=== PATIENT | male | born 1955 | race Caucasian/White ===

== ENCOUNTER 2016-09-10 03:23 | Emergency (ER) | payer OTHER ==
--- NOTE | 2016-09-10 10:14 | ED ORDER SUMMARY ---
..... Patient: NIKI NUÑEZ V OrderSheet [facility] VisitID: [id number] [place] [address] 61y, M Registration Date/Time: 09/10/2016 ORDER SHEET Weight: 83.9 kg Allergies: No Known Drug Allergy GENERAL ORDERS: CBC w Diff Urgent (03:52 09/10/2016 TBowen R.N. per protocol) (3:52 TBowen R.N.) CMP Urgent (03:52 09/10/2016 TBowen R.N. per protocol) (3:52 TBowen R.N.) UA-Culture if indicated Urgent (03:52 09/10/2016 TBowen R.N. per protocol) (3:52 TBowen R.N.) CT Abd/Pel wo Cont (left) Urgent (04:02 09/10/2016 Surya ENRIQUEZ) (Ack 4:04 CHategekimana) (12:08 JSanders R.N.) (Cancelled: Other12:08 JSanders R.N.) US Abdomen Complete (Yes) (left kidney stone ) Urgent (07:22 09/10/2016 Surya ENRIQUEZ) (Ack 7:27 TBergley) (10:19 TBergley) MEDICATION ORDERS: Flomax PO 0.4 mg (NOW) (07:23 09/10/2016 Surya ENRIQUEZ) (7:39 JSanders R.N.) IV FLUIDS: IV NS : initial bolus 500 mL (1000 mL/hr), then 250 mL/hr for 4h (NOW); Routine (04:02 09/10/2016 Surya ENRIQUEZ) (4:17 TBowelodia R.N.) Toradol IV 30 mg (NOW) (04:02 09/10/2016 Surya ENRIQUEZ) (4:15 TBkarin R.N.) Zofran IV 4 mg (NOW) (04:03 09/10/2016 Surya ENRIQUEZ) (4:15 Joe R.N.) Dilaudid IV 1 mg (NOW) (04:03 09/10/2016 Surya ENRIQUEZ) (4:16 TBowelodia R.N.) Dilaudid IV 1 mg (NOW) (06:23 09/10/2016 Joe Glover verbal order read back to Surya ENRIQUEZ) (7:03 Joe Glover) Rocephin IV 2 gm/50mL (NOW) (08:36 09/10/2016 Surya ENRIQUEZ) (8:56 Francisca Luna.N.) Dilaudid IV 0.5 mg (NOW) (10:13 09/10/2016 Renetta ENRIQUEZ) (10:35 Francisca R.NKaleb) ORDER SHEET NOTES: [Electronically signed by Chantel Pineda R.N. (12:09 09/10/2016)] [Electronically signed by Cory Higgins MD (00:41 09/13/2016)] [Electronically locked/signed by Chantel Pineda R.N. (12:09 09/10/2016)]
--- NOTE | 2016-09-10 10:14 | ED NURSING NOTES ---
Clinical Report - Nurses [facility] [address] [place] [address] 09/10/2016 3:26 Patient: NIKI NUÑEZ V TRIAGE Triage time 03:40. Acuity: LEVEL 3. Chief Complaint: PAIN WITH URINATION. Alert. --03:44 TonyaB, R.N. 03:40 09/10/16. BP: 157/129. HR: 95. RR: 18. O2 saturation: 100%. Temp: 98.4 F. Pain level now 02/16. --03:44 TonyaB, R.N. Acuity: LEVEL 3. --07:04 TonyaB, R.N. Weight: 83.9 kg. Height/Length: 75 inches. BMI: 23.1. --03:44 TonyaB, R.N. Medications None. --03:41 TonyaB, R.N. Allergies No Known Drug Allergy. --03:41 TonyaB, R.N. History Arrived by private vehicle. Historian: patient. Accompanied by family. ( pt states sharp left flank pain that started at 2230 tonight pt states he has history of kidney stones). This started last night. He has had discomfort with urination and mild urgency of urination. Treatment [employer]: None. PAST MEDICAL HX: Immunizations: up-to-date. SOCIAL HX: Never smoker. Alcohol use. History of drug use: marijuana. No infectious disease exposure. ABUSE ASSESSMENT: No report of abuse. SELF HARM ASSESSMENT: A self harm assessment was performed. The patient answered "no" to the question "Have you recently felt down, depressed, or hopeless?", "Have you noticed less interest or pleasure in doing things?", "Do you have thoughts of harming or killing yourself?", "Are you here because you tried to hurt yourself?", "Have you ever tried to hurt yourself before today?", "Have you recently had thoughts about harming or killing others?" and "Do you have any dangerous items in your possession?". FALL RISK ASSESSMENT: Fall risk assessment completed. No fall risk identified. NUTRITIONAL RISK ASSESSMENT: The nutritional risk assessment revealed no deficiencies. FUNCTIONAL ASSESSMENT: Functional assessment: no impairments noted. LEARNING NEEDS ASSESSMENT: The learning needs assessment revealed no barriers. SKIN INTEGRITY ASSESSMENT: Skin integrity risk assessment completed. No skin integrity risk identified. --03:44 Adalberto Do PROBLEMS: Nephrolithiasis. --03:42 Adalberto Do Interventions ID band on patient. To treatment room. --03:44 Adalberto Do PHYSICAL ASSESSMENT Ambulatory to room. GENERAL / NEURO / PSYCH: Alert. Oriented X 4. Appears in pain. HEENT: Mucous membranes are pink. RESPIRATORY: Respirations not labored. Breath sounds within normal limits. CVS: Normal heart rate and rhythm. Capillary refill less than 2 seconds. GI / : Abdomen soft and nontender. Bowel sounds within normal limits. SKIN: Skin is warm and dry. --03:44 Adalberto Do NURSING PROGRESS NOTES 03:51 09/10/2016 Site #1 started via IV in the right forearm with an 20g angiocath; two attempts. Blood drawn: rainbow set. Labeled in the presence of the patient and sent to the lab. Saline lock flushed with 10 mL saline. --03:51 Adalberto Do 04:15 09/10/2016 Toradol IVP 30 mg given over 3 minute(s) via site #1. Allergies verified and confirmed 5 rights. IV patency established. IV site checked: no pain, redness, or swelling. IV flushed thoroughly pre- and post-medication administration. IVP given by RN. --04:15 Adalberto Do 04:15 09/10/2016 Zofran (Ondansetron HCl) IVP 4 mg given over 2 minute(s) via site #1. Allergies verified and confirmed 5 rights. IV patency established. IV site checked: no pain, redness, or swelling. IV flushed thoroughly pre- and post-medication administration. IVP given by RN. --04:15 Alo Do. 04:16 09/10/2016 Dilaudid (HYDROmorphone HCl PF) IVP 1 mg given over 2 second(s) via site #1. Allergies verified, confirmed 5 rights and sedative warning given to the patient and patient's family. IV patency established. IV site checked: no pain, redness, or swelling. IV flushed thoroughly pre- and post-medication administration. IVP given by RN. --04:16 Adalberto Do 04:17 09/10/2016 Started bag #1 1000 mL IV Fluids IV NS (Saline); bolus of 500 mL over 30 minute(s) then at 250 mL/hr over 4 hour(s) via site #1 via IV pump. Allergies verified and confirmed 5 rights. IV patency established. IV site checked: no pain, redness, or swelling. IV flushed thoroughly pre- and post-medication administration. --04:17 Alo Do. The patient is calm and resting quietly. Overall patient status is improved- he states feels better. Call light placed in reach. Side rails up x 1. Bed placed in lowest position. Brakes of bed on. Patient waiting for CT results. --04:56 Adalberto Do 06:38 09/10/2016 Dilaudid (HYDROmorphone HCl PF) IVP 1 mg given over 3 minute(s) via site #1. Allergies verified, confirmed 5 rights and sedative warning given to the patient and patient's family. IV patency established. IV site checked: no pain, redness, or swelling. IV flushed thoroughly pre- and post-medication administration. IVP given by RN. --07:03 Alo Do. The patient is calm and resting quietly. Overall patient status is improved- he states feels better. Two patient identifiers checked. Call light placed in reach. Side rails up x 1. Bed placed in lowest position. Brakes of bed on. --07:04 Aol Do. Patient waiting for CT results. --07:04 Adalberto Do 07:14 09/10/16. Care transferred and report received (Rebekah RAMIREZ). --07:14 Chantel Pineda R.N. 07:22 09/10/16. BP: 146/80 (regular adult cuff) taken on the left arm, while sitting. HR: 46. RR: 16 (regular). O2 saturation: 94% on room air. Temp: 98.2 F (oral). Pain level now: 08/19. Additional comments: Patient reports his HR is usually low. --07:29 Chantel Pineda R.N. 07:29 09/10/16. ( CT scan is still down, patient states doing well). --07:29 Chantel Pineda R.N. 07:37 09/10/2016 Dilaudid IVP Response: no adverse reaction pain is improving. Symptoms have improved the patient feels better. --07:38 Chantel Pineda R.N. 07:39 09/10/2016 Flomax (Tamsulosin HCl) PO Capsules 0.4 mg given. Allergies verified and confirmed 5 rights. --07:39 Chantel Pineda R.N. 08:56 09/10/2016 Started 2 gm of Rocephin (CefTRIAXone Sodium) IVPB in bag #1 50 mL; at 2 gm/50mL over 30 minute(s) via site #1 via IV pump. Allergies verified and confirmed 5 rights. IV patency established. IV site checked: no pain, redness, or swelling. IV flushed thoroughly pre- and post-medication administration. --08:56 Chantel Pineda R.N. 09:25 09/10/2016 Rocephin IVPB Discontinued: bag #1 completed. Total amount infused: 50 mL. IV patency established. IV site checked: no pain, redness, or swelling. IV flushed thoroughly. --10:30 Chantel Pineda R.N. 09:38 09/10/16. ( [employer] in with patient now). --09:38 Chantel Pineda R.N. 10:33 09/10/2016 Dilaudid (HYDROmorphone HCl PF) IVP 0.5 mg given over 1 minute(s) via site #1. Allergies verified, confirmed 5 rights and sedative warning given to the patient and patient's family. IV patency established. IV site checked: no pain, redness, or swelling. IV flushed thoroughly pre- and post-medication administration. IVP given by RN. --10:35 Chantel Pineda R.N. 10:35 09/10/16. BP: 158/79 (regular adult cuff) taken on the left arm, while sitting. HR: 55. RR: 16 (regular). O2 saturation: 94% on room air. Temp: 98.2 F (oral). Pain level now: 10/17. --10:37 Chanetl Pineda R.N. 10:37 09/10/16. ( Patient doing well pain is getting a little stronger, just given dilaudid 0.5mg). --10:37 Chantel Pineda R.N. 11:05 09/10/2016 Dilaudid IVP Response: no adverse reaction pain is improving. Symptoms have improved the patient feels better. --11:05 Chantel Pineda R.N. 11:09/10/2016 IV Fluids IV NS Discontinued: bag #1 completed. Total amount infused: 500 mL. --11:10 Chantel Pineda R.N. DISPOSITION / DISCHARGE 11:09/10/2016 Site #1 removed upon discharge. Bandaid applied. --11:07 Chantel Pineda R.N. 11:09/10/16. Departure time: 11:15 Sep 10 2016. Condition at departure: improved. No learning barriers present. Discharge instructions provided and reviewed with the patient and spouse. Reviewed medication(s) side effects and precautions information. Prescription(s) given to the patient. Work note given. Patient and spouse verbalized understanding. Written instructions provided in Hebrew. The patient was discharged by the physician. He was discharged home and accompanied by spouse. He left the Emergency Department ambulatory and via private vehicle. Spouse driving. --11:08 Chantel Pineda R.N. 11:09/10/16. BP: 137/76 (regular adult cuff) taken on the left arm, while sitting. HR: 57. RR: 16 (regular). O2 saturation: 100% on room air. Temp: 97.8 F. Pain level now: 07/19. --11:08 Chantel Pineda R.N. Locked/Released at 09/10/2016 12:09 by Chantel Pineda R.N.
--- NOTE | 2016-09-10 10:14 | ED ORDER SUMMARY ---
..... Patient: NIKI NUÑEZ V OrderSheet [facility] VisitID: [id number] [place] [address] 61y, M Registration Date/Time: 09/10/2016 ORDER SHEET Weight: 83.9 kg Allergies: No Known Drug Allergy GENERAL ORDERS: CBC w Diff Urgent (03:52 09/10/2016 TBowen R.N. per protocol) (3:52 TBowen R.N.) CMP Urgent (03:52 09/10/2016 TBowen R.N. per protocol) (3:52 TBowen R.N.) UA-Culture if indicated Urgent (03:52 09/10/2016 TBowen R.N. per protocol) (3:52 TBowen R.N.) CT Abd/Pel wo Cont (left) Urgent (04:02 09/10/2016 Surya ENRIQUEZ) (Ack 4:04 CHategekimana) (12:08 JSanders R.N.) (Cancelled: Other12:08 JSanders R.N.) US Abdomen Complete (Yes) (left kidney stone ) Urgent (07:22 09/10/2016 Surya ENRIQUEZ) (Ack 7:27 TBergley) (10:19 TBergley) MEDICATION ORDERS: Flomax PO 0.4 mg (NOW) (07:23 09/10/2016 Surya ENRIQUEZ) (7:39 JSanders R.N.) IV FLUIDS: IV NS : initial bolus 500 mL (1000 mL/hr), then 250 mL/hr for 4h (NOW); Routine (04:02 09/10/2016 Surya ENRIQUEZ) (4:17 TBowelodia R.N.) Toradol IV 30 mg (NOW) (04:02 09/10/2016 Surya ENRIQUEZ) (4:15 TBkarin R.N.) Zofran IV 4 mg (NOW) (04:03 09/10/2016 Surya ENRIQUEZ) (4:15 Joe R.N.) Dilaudid IV 1 mg (NOW) (04:03 09/10/2016 Surya ENRIQUEZ) (4:16 TBowelodia R.N.) Dilaudid IV 1 mg (NOW) (06:23 09/10/2016 Joe Glover verbal order read back to Surya ENRIQUEZ) (7:03 Joe Glover) Rocephin IV 2 gm/50mL (NOW) (08:36 09/10/2016 Surya ENRIQUEZ) (8:56 Francisca Luna.N.) Dilaudid IV 0.5 mg (NOW) (10:13 09/10/2016 Renetta ENRIQUEZ) (10:35 Francisca R.NKaleb) ORDER SHEET NOTES: [Electronically signed by Chantel Pineda R.N. (12:09 09/10/2016)] [Electronically signed by Cory Higgins MD (00:41 09/13/2016)] [Electronically locked/signed by Chantel Pineda R.N. (12:09 09/10/2016)]
--- NOTE | 2016-09-10 10:14 | ED CLINICAL REPORT ---
Clinical Report - Physicians/Mid Levels [facility] [address] [place] [address] 09/10/2016 3:26 [id number] Time Seen: 03:53 Sep 04 2016. Arrived- By private vehicle. Historian- patient. CPT: ER phys charges level 4 (#[id number]). HISTORY OF PRESENT ILLNESS Chief Complaint: ABDOMINAL PAIN and FLANK PAIN. At its maximum, severity described as moderate. When seen in the E.D., severity described as moderate. Modifying factors. Not worsened by anything. Not relieved by anything. It is described as "pain" and it is described as located in the left flank. This started last night ( pt states sharp left flank pain that started at 2230 tonight pt states he has history of kidney stones). and is still present. The patient has had nausea. Similar symptoms previously: As bad. Diagnosis: kidney stone. Recent medical care: Not recently seen/assessed. REVIEW OF SYSTEMS No constipation, black stools, hematemesis, difficulty with urination or pain with urination. No urinary frequency, fever, sore throat, chest pain or difficulty breathing. No cough, joint pain or skin rash. The patient has had back pain. All systems otherwise negative, except as recorded above. PAST HISTORY Has had multiple episodes of moderate urinary calculi (1999, 2007 and once in [place] Lithotripsy once. Medications: None. Allergies: No Known Drug Allergy. SOCIAL HISTORY Alcohol use. History of drug use: marijuana. ADDITIONAL NOTES The nursing notes have been reviewed. PHYSICAL EXAM Vital Signs: 09/10/2016 03:40 BP: 157/129. HR: 95. RR: 18. O2 saturation: 100%. Temp: 98.4 F. Appearance: Alert. Appears to be in pain. Patient in moderate distress. Eyes: Eyes normal inspection. ENT: Pharynx normal. Neck: Normal inspection. Neck supple. CVS: Normal heart rate and rhythm. Heart sounds normal. Pulses normal. Respiratory: No respiratory distress. Breath sounds normal. Chest nontender. Abdomen: Soft and nontender. Bowel sounds normal. Back: Normal inspection. No CVA tenderness. Skin: Skin warm. Normal skin color. No rash. Extremities: Extremities exhibit normal ROM. Neuro: Oriented X 3. No motor deficit. No sensory deficit. LABS, X-RAYS, AND EKG Abdominal Sonogram: Fatty liver is present. (Intrarenal stone). The study was independently viewed by me and interpreted contemporaneously by me. Study included the upper abdomen. Laboratory Tests: UA-Culture if indicated: (MAX: 09/10/2016 03:45) ( [facility] 09/10/2016 04:24) Final results Test Result Flag Units (Reference) URINE COLOR YELLOW URINE APPEARANCE CLEAR URINE GLUCOSE NEGATIVE (NEGATIVE) URINE BILIRUBIN NEGATIVE (NEGATIVE) URINE KETONE TRACE (NEGATIVE) URINE SPECIFIC GRAVITY >= 1.030 (1.010-1.030) URINE PH 5.5 (5.0-8.0) URINE PROTEIN 1+ (NEGATIVE) URINE UROBILINOGEN 0.2 EU/dL (0.2-1.0) URINE NITRITE NEGATIVE (NEGATIVE) URINE BLOOD 3+ (NEGATIVE) URINE LEUK ESTERASE TRACE (NEGATIVE) URINE RBC >100 rbc/hpf (0-1) URINE WBC 1-3 wbc/hpf (0-1) URINE EPITHELIAL CELLS 0-1 EPI/hpf (0-5) URINE BACTERIA MODERATE (2+ TO 3+) (NONE SEEN) URINE COMMENT CULTURE INDICATED URINE CULTURES ARE SET-UP BASED ON THE FOLLOWING CRITERIA:POSITIVE NITRITEPOSITIVE LEUKOCYTE ESTERASEGREATER THAN 10 WHITE BLOOD CELLSMODERATE (2+) OR GREATER BACTERIA CBC w Diff: (MAX: 09/10/2016 03:45) ( [facility] 09/10/2016 04:14) Final results Test Result Flag Units (Reference) WHITE BLOOD COUNT 12.6 H K/uL (4.5-11.5) RED BLOOD COUNT 5.52 M/uL (4.50-5.90) HEMOGLOBIN 15.7 gm/dL (13.5-17.5) HEMATOCRIT 47.3 % (41.0-53.0) MEAN CELL VOLUME 86 fL (80-100) MEAN CORPUSCULAR HGB 28 pg (26-34) MEAN CORPUSCULAR HGB CONC 33 g/dL (31-37) RED CELL DISTRIBUTION WIDTH 13.7 % (11.6-14.8) PLATELET COUNT 180 K/uL (150-400) NEUTROPHIL % 81.4 H % (50-75) LYMPH % 11.2 L % (25-40) MONO % 6.9 % (3-14) EOSINOPHIL % 0.3 % (0-4) BASOPHIL % 0.2 % (0-2) CMP: (MAX: 09/10/2016 03:45) ( MsgRcvd 09/10/2016 04:27) Final results Test Result Flag Units (Reference) GLUCOSE 126 H mg/dL (70-110) BUN 19 H mg/dL (7-18) CREATININE 1.2 mg/dL (0.6-1.3) Estimated GFR >60 mL/min Estimated GFR- >60 mL/min Note: Persistent reduction over 3 months in eGFR<60 mL/min/1.73 m2 defines CKD. Patients with eGFR values>=60 mL/min/1.73 m2 may also have CKD if evidence ofpersistent proteinuria. Additional information may be foundat www.kidney.org. SODIUM 139 mmol/L (136-145) POTASSIUM 3.4 L mmol/L (3.5-5.1) CHLORIDE 99 mmol/L (98-107) CARBON DIOXIDE 29 mmol/L (21-32) CALCIUM 9.7 mg/dL (8.5-10.1) TOTAL PROTEIN 8.8 H g/dL (6.4-8.2) ALBUMIN 4.7 g/dL (3.3-5.0) BILIRUBIN, TOTAL 0.5 mg/dL (0.0-1.0) ALKALINE PHOSPHATASE 97 U/L (46-116) AST (SGOT) 28 U/L (15-37) ALT (SGPT) 50 U/L (12-78) . PROGRESS AND PROCEDURES Course of Care: IV NS Dilaudid 1 mg IV Zofran 4 mg IV Flomax 0.4 mg po Patient is stable. Symptoms better. Dilaudid 1 mg IV Rocephin 2g IV CT could not be completed due to CT failure. US with intrarenal stone. Patient/family counseled. Disposition: Discharged. Condition: stable. CLINICAL IMPRESSION Ureterolithiasis (single stone) in the left ureter. Acute urinary tract infection with cystitis. INSTRUCTIONS Do not work for two days until better. Drink plenty of fluids. Warnings: Further evaluation is necessary. GENERAL WARNINGS: Return or contact your physician immediately if your condition worsens or changes unexpectedly, if not improving as expected, or if other problems arise. Prescription Medications: Zofran (orally disintegrating tablets) 4 mg: take 1 orally every 4 hours as needed for nausea. Dispense fifteen (15). No refill. Trimethoprim-Sulfamethoxazole DS: take 1 tablet orally every 12 hours for 7 days. Dispense fourteen (14). No refills. Oxycodone/APAP 5 mg/325 mg: take 1-2 tablets orally every 4 hours as needed for pain. Dispense twenty-five (25). No refill. Flomax 0.4 mg: take 1 orally every 24 hours. Dispense five (5). No refills. Follow-up: Follow up with a urologist in three days if not well. Understanding of the discharge instructions verbalized by patient. (Electronically signed by Cory Higgins MD 09/13/2016 0:41) Addenda for NIKI NUÑEZ V VisitID: [id number] Date: 09/10/2016 09/10/2016 10:08 Prescribe Wellness [facility] reports no ureteral stone or hydronephrosis and a normal aorta. Dr Randhawa discharge is appropriate. Pt told to immediately recheck for uncontrolled pain or a temp of 100.5 or greater. (Electronically signed by Sean Bernal MD - 09/10/2016 10:08)
--- NOTE | 2016-09-10 11:04 | DIAGNOSTIC IMAGING REPORT ---
PROCEDURE: US ABDOMEN ULTRASOUND-COMPLETE INDICATION: ABDOMINAL PAIN TECHNIQUE: Martin scale and color Doppler sonographic images of the abdomen were obtained. COMPARISON: None. FINDINGS: Liver measures 16.1 cm with diffuse increased echogenicity and focal sparing adjacent to the gallbladder. Normal gallbladder and CBD (4 mm). Spleen measures 13.6 x 3.9 cm. Pancreas not well visualized. Aorta and IVC are patent. Normal hepatopetal flow. Normal right kidney measures 12.8 cm. Right kidney measures 13.8 cm with a 7 mm echogenic focus in the upper pole. No hydronephrosis. IMPRESSION: 1. Hepatic steatosis versus intrinsic liver disease 2. 7 mm left renal upper pole echogenic focus, nonobstructing calculus versus artifact.
--- NOTE | 2016-09-13 00:41 | ED DISCHARGE INSTRUCTIONS ---
Patient: NIKI NUÑEZ V General Instructions [facility] VisitID: [id number] [place] [address] 61y, M Registration Date/Time: 09/10/2016 Ureterolithiasis (single stone) in the left ureter. Acute urinary tract infection with cystitis. INSTRUCTIONS Do not work for two days until better. Drink plenty of fluids. Warnings: Further evaluation is necessary. GENERAL WARNINGS: Return or contact your physician immediately if your condition worsens or changes unexpectedly, if not improving as expected, or if other problems arise. Prescription Medications: Zofran (orally disintegrating tablets) 4 mg: take 1 orally every 4 hours as needed for nausea. Dispense fifteen (15). No refill. Trimethoprim-Sulfamethoxazole DS: take 1 tablet orally every 12 hours for 7 days. Dispense fourteen (14). No refills. Oxycodone/APAP 5 mg/325 mg: take 1-2 tablets orally every 4 hours as needed for pain. Dispense twenty-five (25). No refill. Flomax 0.4 mg: take 1 orally every 24 hours. Dispense five (5). No refills. Follow-up: Follow up with a urologist in three days if not well. Understanding of the discharge instructions verbalized by patient. ADDITIONAL INFORMATION Kidney Stone (W/ Colic) The sharp cramping pain and nausea/vomiting that you have is due to a small stone which has formed in the kidney and is now passing down a narrow tube (ureter) on its way to your bladder. Once it reaches your bladder, the pain will stop. The stone may pass in your urine stream in one piece. [The size may be 1/16" to 1/4" (1-6mm)]. Or, the stone may also break up into danielle fragments which you may not even notice. Once you have had a kidney stone, you are at risk for developing another one in the future. Home Care: Drink plenty of fluids (at least 8 to 10 glasses of water a day). Most stones will pass on their own, but may take from a few hours to a few days. Sometimes the stone is too large to pass by itself and special methods will have to be used to remove the stone. Each time you urinate, do so in a jar. Pour the urine from the jar through the strainer and into the toilet. Continue doing this until 24 hours after your pain stops. By then, if there was a kidney stone, it should pass from your bladder. Some stones dissolve into sand-like particles and pass right through the strainer. In that case, you wont ever see a stone. Save any stone that you find in the strainer and bring it to your doctor for analysis. It may be possible to prevent certain types of stones from forming. Therefore, it is important to know what kind of stone you have. Try to stay as active as possible since this will help the stone pass. Do not stay in bed unless your pain prevents you from getting up. You may notice a red, pink or brown color to your urine. This is normal while passing a kidney stone. Follow Up with your doctor or return to this facility if the pain lasts more than 48 hours. Get Prompt Medical Attention if any of the following occur: Pain that is not controlled by the medicine given Repeated vomiting or unable to keep down fluids Weakness, dizziness or fainting Fever of 100.4F (38C) or higher, or as directed by your healthcare provider Passage of solid red or brown urine (can't see through it) or urine with lots of blood clots Unable to pass urine for 8 hours and increasing bladder pressure Bladder Infection,Male (Adult) A bladder infection ("cystitis" or "UTI") usually causes a constant urge to urinate, and a burning when passing urine. Urine may be cloudy, smelly or dark. There may be also be pain in the lower abdomen. Cystitis in males is not common. It may be caused by a partial blockage in the urinary system that keeps the bladder from emptying completely. This is most often related to an enlarged prostate gland. Home Care: Drink lots of fluids (at least 6-8 glasses a day). This will flush the bacteria out of your bladder. Avoid sexual intercourse until your symptoms are gone. Avoid caffeine, alcohol, and spicy foods. They could irritate the bladder. A bladder infection is treated with antibiotics. You may also be given Pyridium (generic - phenazopyridine) to reduce burning with urination. This will cause urine to become a bright orange color, which can stain clothing. Follow Up with your doctor or this facility if ALL symptoms have not cleared within five days. It is important to keep your follow up appointment to discuss with your doctor the need for further tests of the urinary tract. Get Prompt Medical Attention if any of the following occur: Fever of 100.4F (38C) or higher, or as directed by your healthcare provider No improvement by the third day of treatment Increasing back or abdominal pain Repeated vomiting; unable to keep medicine down Weakness, dizziness or fainting Ondansetron Oral disintegrating tablet What is this medicine? ONDANSETRON (on FEDERICO se brendan) is used to treat nausea and vomiting caused by chemotherapy. It is also used to prevent or treat nausea and vomiting after surgery. How should I use this medicine? These tablets are made to dissolve in the mouth. Do not try to push the tablet through the foil backing. With dry hands, peel away the foil backing and gently remove the tablet. Place the tablet in the mouth and allow it to dissolve, then swallow. While you may take these tablets with water, it is not necessary to do so. Talk to your receiving associate store regarding the use of this medicine in children. Special care may be needed. What side effects may I notice from receiving this medicine? Side effects that you should report to your doctor or health home care physical therapist as soon as possible: allergic reactions like skin rash, itching or hives, swelling of the face, lips, or tongue breathing problems dizziness fast or irregular heartbeat feeling faint or lightheaded, falls fever and chills swelling of the hands and feet tightness in the chest Side effects that usually do not require medical attention (report to your doctor or health home care physical therapist if they continue or are bothersome): constipation or diarrhea headache What may interact with this medicine? Do not take this medicine with any of the following medications: -apomorphine -cisapride -dofetilide -dronedarone -pimozide -thioridazine -ziprasidone This medicine may also interact with the following medications: -carbamazepine -phenytoin -rifampicin -tramadol -other medicines that prolong the QT interval (cause an abnormal heart rhythm) What if I miss a dose? If you miss a dose, take it as soon as you can. If it is almost time for your next dose, take only that dose. Do not take double or extra doses. Where should I keep my medicine? Keep out of the reach of children. Store between 2 and 30 degrees C (36 and 86 degrees F). Throw away any unused medicine after the expiration date. What should I tell my health care provider before I take this medicine? They need to know if you have any of these conditions: heart disease history of irregular heartbeat liver disease low levels of magnesium or potassium in the blood an unusual or allergic reaction to ondansetron, granisetron, other medicines, foods, dyes, or preservatives or trying to get breast-feeding What should I watch for while using this medicine? Check with your doctor or health home care physical therapist as soon as you can if you have any sign of an allergic reaction. Oxycodone Hydrochloride, Acetaminophen Oral tablet What is this medicine? ACETAMINOPHEN; OXYCODONE (a set a LALO camilo fen; ox i KOE done) is a pain reliever. It is used to treat mild to moderate pain. How should I use this medicine? Take this medicine by mouth with a full glass of water. Follow the directions on the prescription label. Take your medicine at regular intervals. Do not take your medicine more often than directed. Talk to your receiving associate store regarding the use of this medicine in children. Special care may be needed. Patients over 65 years old may have a stronger reaction and need a smaller dose. What side effects may I notice from receiving this medicine? Side effects that you should report to your doctor or health home care physical therapist as soon as possible: allergic reactions like skin rash, itching or hives, swelling of the face, lips, or tongue breathing difficulties, wheezing confusion light headedness or fainting spells severe stomach pain yellowing of the skin or the whites of the eyes Side effects that usually do not require medical attention (report to your doctor or health home care physical therapist if they continue or are bothersome): dizziness drowsiness nausea vomiting What may interact with this medicine? alcohol antihistamines barbiturates like amobarbital, butalbital, butabarbital, methohexital, pentobarbital, phenobarbital, thiopental, and secobarbital benztropine drugs for bladder problems like solifenacin, trospium, oxybutynin, tolterodine, hyoscyamine, and methscopolamine drugs for breathing problems like ipratropium and tiotropium drugs for certain stomach or intestine problems like propantheline, homatropine methylbromide, glycopyrrolate, atropine, belladonna, and dicyclomine general anesthetics like etomidate, ketamine, nitrous oxide, propofol, desflurane, enflurane, halothane, isoflurane, and sevoflurane medicines for depression, anxiety, or psychotic disturbances medicines for sleep muscle relaxants naltrexone narcotic medicines (opiates) for pain phenothiazines like perphenazine, thioridazine, chlorpromazine, mesoridazine, fluphenazine, prochlorperazine, promazine, and trifluoperazine scopolamine tramadol trihexyphenidyl What if I miss a dose? If you miss a dose, take it as soon as you can. If it is almost time for your next dose, take only that dose. Do not take double or extra doses. Where should I keep my medicine? Keep out of the reach of children. This medicine can be abused. Keep your medicine in a safe place to protect it from theft. Do not share this medicine with anyone. Selling or giving away this medicine is dangerous and against the law. Store at room temperature between 20 and 25 degrees C (68 and 77 degrees F). Keep container tightly closed. Protect from light. This medicine may cause accidental overdose and if it is taken by other adults, children, or pets. Flush any unused medicine down the toilet to reduce the chance of harm. Do not use the medicine after the expiration date. What should I tell my health care provider before I take this medicine? They need to know if you have any of these conditions: brain tumor Crohn's disease, inflammatory bowel disease, or ulcerative colitis drink more than 3 alcohol containing drinks per day drug abuse or addiction head injury heart or circulation problems kidney disease or problems going to the bathroom liver disease lung disease, asthma, or breathing problems an unusual or allergic reaction to acetaminophen, oxycodone, other opioid analgesics, other medicines, foods, dyes, or preservatives or trying to get breast-feeding What should I watch for while using this medicine? Tell your doctor or health home care physical therapist if your pain does not go away, if it gets worse, or if you have new or a different type of pain. You may develop tolerance to the medicine. Tolerance means that you will need a higher dose of the medication for pain relief. Tolerance is normal and is expected if you take this medicine for a long time. Do not suddenly stop taking your medicine because you may develop a severe reaction. Your body becomes used to the medicine. This does NOT mean you are addicted. Addiction is a behavior related to getting and using a drug for a non-medical reason. If you have pain, you have a medical reason to take pain medicine. Your doctor will tell you how much medicine to take. If your doctor wants you to stop the medicine, the dose will be slowly lowered over time to avoid any side effects. You may get drowsy or dizzy. Do not drive, use machinery, or do anything that needs mental alertness until you know how this medicine affects you. Do not stand or sit up quickly, especially if you are an older patient. This reduces the risk of dizzy or fainting spells. Alcohol may interfere with the effect of this medicine. Avoid alcoholic drinks. There are different types of narcotic medicines (opiates) for pain. If you take more than one type at the same time, you may have more side effects. Give your health care provider a list of all medicines you use. Your doctor will tell you how much medicine to take. Do not take more medicine than directed. Call emergency for help if you have problems breathing. The medicine will cause constipation. Try to have a bowel movement at least every 2 to 3 days. If you do not have a bowel movement for 3 days, call your doctor or health home care physical therapist. Do not take Tylenol (acetaminophen) or medicines that have acetaminophen with this medicine. Too much acetaminophen can be very dangerous. Many nonprescription medicines contain acetaminophen. Always read the labels carefully to avoid taking more acetaminophen. You have been given the following additional information: Kidney Stone W/ Colic Bladder Infection, Male (Adult) Ondansetron Oral disintegrating tablet Oxycodone Hydrochloride, Acetaminophen Oral tablet Do not work for two days until better. (Electronically signed by Cory Higgins MD 09/13/2016 0:41)
--- NOTE | 2016-09-13 00:42 | ED MAR SUMMARY ---
..... Medication Administration Record [facility] [address] [place] [address] Patient: NIKI NUÑEZ V Visit ID: [id number] 61y, M Weight: 83.9 kg Height/Length: 75 in BMI: 23.1 ALLERGIES: No Known Drug Allergy Given 04:15 09/10/2016 Adalberto Do Medication Administered: TORADOL [IVP], Dose: 30 mg IVP over 3 minute(s), Site: #1 right forearm. Medication Ordered: Toradol IV 30 mg (NOW). Given 04:15 09/10/2016 Adalberto Do Medication Administered: ZOFRAN [IVP] (ONDANSETRON HCL), Dose: 4 mg IVP over 2 minute(s), Site: #1 right forearm. Medication Ordered: Zofran IV 4 mg (NOW). Given 04:16 09/10/2016 Adalberto Do Medication Administered: DILAUDID [IVP] (HYDROMORPHONE HCL PF), Dose: 1 mg IVP over 2 second(s), Site: #1 right forearm. Medication Ordered: Dilaudid IV 1 mg (NOW). Start 04:17 09/10/2016 Adalberto Do, Stop 11:10 09/10/2016 Chantel Pineda R.N. Medication Administered: IV NS (SALINE), Dose: IV Fluids over 4 hour(s), Rate: 250 mL/hr, Bolus: 500 mL over 30 minute(s), Dispensed: 1000 mL bag, Site: #1 right forearm. Medication Ordered: IV NS : initial bolus 500 mL (1000 mL/hr), then 250 mL/hr for 4h (NOW); Routine. Given 06:38 09/10/2016 Adalberto Do Medication Administered: DILAUDID [IVP] (HYDROMORPHONE HCL PF), Dose: 1 mg IVP over 3 minute(s), Site: #1 right forearm. Medication Ordered: Dilaudid IV 1 mg (NOW). Given 07:39 09/10/2016 Chantel Pineda R.N. Medication Administered: FLOMAX [PO] (TAMSULOSIN HCL), Dose: 0.4 mg Capsules PO. Medication Ordered: Flomax PO 0.4 mg (NOW). Start 08:56 09/10/2016 Chantel Pineda, RKalebN., Stop 09:25 09/10/2016 Chantel Pineda R.N. Medication Administered: ROCEPHIN [IVPB] (CEFTRIAXONE SODIUM), Dose: 2 gm IVPB over 30 minute(s), Rate: 2 gm/50mL, Dispensed: 50 mL bag, Site: #1 right forearm. Medication Ordered: Rocephin IV 2 gm/50mL (NOW). Given 10:33 09/10/2016 Chantel Pineda RKalebN. Medication Administered: DILAUDID [IVP] (HYDROMORPHONE HCL PF), Dose: 0.5 mg IVP over 1 minute(s), Site: #1 right forearm. Medication Ordered: Dilaudid IV 0.5 mg (NOW).
--- NOTE | 2016-09-13 00:42 | ED MED RECONCILIATION SUMMARY ---
Patient: NIKI NUÑEZ V Medication Reconciliation Report [facility] VisitID: [id number] [place] [address] 61y, M Registration Date/Time: 09/10/2016 Weight: 83.9 kg Height/Length: 75 in. BMI: 23.1 ALLERGIES: No Known Drug Allergy The patient's Home Medications are listed below: NONE. The source(s) of the original Home Medication information: Not obtained. The following Medications were given to the patient in the Emergency Department: Toradol [IVP] IVP 30 mg, administered: 09/10/2016 4:15:00 AM Zofran [IVP] IVP 4 mg, administered: 09/10/2016 4:15:00 AM Dilaudid [IVP] IVP 1 mg, administered: 09/10/2016 4:16:00 AM IV NS IV Fluids bolus 500 mL over 30 minute(s), then 250 mL/hr, administered: 09/10/2016 4:17:00 AM Dilaudid [IVP] IVP 1 mg, administered: 09/10/2016 6:38:00 AM Flomax [PO] PO 0.4 mg, administered: 09/10/2016 7:39:00 AM Rocephin [IVPB] IVPB bolus 0, then 2 gm 2 gm/50mL, administered: 09/10/2016 8:56:00 AM Dilaudid [IVP] IVP 0.5 mg, administered: 09/10/2016 10:33:00 AM The following Medications were prescribed to the patient: Zofran (orally disintegrating tablets) 4 mg: take 1 orally every 4 hours as needed for nausea. Dispense fifteen (15). No refill. -- Cory Higgins MD Trimethoprim-Sulfamethoxazole DS: take 1 tablet orally every 12 hours for 7 days. Dispense fourteen (14). No refills. -- Cory Higgins MD Oxycodone/APAP 5 mg/325 mg: take 1-2 tablets orally every 4 hours as needed for pain. Dispense twenty-five (25). No refill. -- Cory Higgins MD Flomax 0.4 mg: take 1 orally every 24 hours. Dispense five (5). No refills. -- Cory Higgins MD
--- NOTE | 2016-09-13 00:42 | ED MAR SUMMARY ---
..... Medication Administration Record [facility] [address] [place] [address] Patient: NIKI NUÑEZ V Visit ID: [id number] 61y, M Weight: 83.9 kg Height/Length: 75 in BMI: 23.1 ALLERGIES: No Known Drug Allergy Given 04:15 09/10/2016 Adalberto Do Medication Administered: TORADOL [IVP], Dose: 30 mg IVP over 3 minute(s), Site: #1 right forearm. Medication Ordered: Toradol IV 30 mg (NOW). Given 04:15 09/10/2016 Adalberto Do Medication Administered: ZOFRAN [IVP] (ONDANSETRON HCL), Dose: 4 mg IVP over 2 minute(s), Site: #1 right forearm. Medication Ordered: Zofran IV 4 mg (NOW). Given 04:16 09/10/2016 Adalberto Do Medication Administered: DILAUDID [IVP] (HYDROMORPHONE HCL PF), Dose: 1 mg IVP over 2 second(s), Site: #1 right forearm. Medication Ordered: Dilaudid IV 1 mg (NOW). Start 04:17 09/10/2016 Adalberto Do, Stop 11:10 09/10/2016 Chantel Pineda R.N. Medication Administered: IV NS (SALINE), Dose: IV Fluids over 4 hour(s), Rate: 250 mL/hr, Bolus: 500 mL over 30 minute(s), Dispensed: 1000 mL bag, Site: #1 right forearm. Medication Ordered: IV NS : initial bolus 500 mL (1000 mL/hr), then 250 mL/hr for 4h (NOW); Routine. Given 06:38 09/10/2016 Adalberto Do Medication Administered: DILAUDID [IVP] (HYDROMORPHONE HCL PF), Dose: 1 mg IVP over 3 minute(s), Site: #1 right forearm. Medication Ordered: Dilaudid IV 1 mg (NOW). Given 07:39 09/10/2016 Chantel Pineda R.N. Medication Administered: FLOMAX [PO] (TAMSULOSIN HCL), Dose: 0.4 mg Capsules PO. Medication Ordered: Flomax PO 0.4 mg (NOW). Start 08:56 09/10/2016 Chantel Pineda, RKalebN., Stop 09:25 09/10/2016 Chantel Pineda R.N. Medication Administered: ROCEPHIN [IVPB] (CEFTRIAXONE SODIUM), Dose: 2 gm IVPB over 30 minute(s), Rate: 2 gm/50mL, Dispensed: 50 mL bag, Site: #1 right forearm. Medication Ordered: Rocephin IV 2 gm/50mL (NOW). Given 10:33 09/10/2016 Chantel Pineda RKalebN. Medication Administered: DILAUDID [IVP] (HYDROMORPHONE HCL PF), Dose: 0.5 mg IVP over 1 minute(s), Site: #1 right forearm. Medication Ordered: Dilaudid IV 0.5 mg (NOW).
--- NOTE | 2016-09-13 00:42 | ED MED RECONCILIATION SUMMARY ---
Patient: NIKI NUÑEZ V Medication Reconciliation Report [facility] VisitID: [id number] [place] [address] 61y, M Registration Date/Time: 09/10/2016 Weight: 83.9 kg Height/Length: 75 in. BMI: 23.1 ALLERGIES: No Known Drug Allergy The patient's Home Medications are listed below: NONE. The source(s) of the original Home Medication information: Not obtained. The following Medications were given to the patient in the Emergency Department: Toradol [IVP] IVP 30 mg, administered: 09/10/2016 4:15:00 AM Zofran [IVP] IVP 4 mg, administered: 09/10/2016 4:15:00 AM Dilaudid [IVP] IVP 1 mg, administered: 09/10/2016 4:16:00 AM IV NS IV Fluids bolus 500 mL over 30 minute(s), then 250 mL/hr, administered: 09/10/2016 4:17:00 AM Dilaudid [IVP] IVP 1 mg, administered: 09/10/2016 6:38:00 AM Flomax [PO] PO 0.4 mg, administered: 09/10/2016 7:39:00 AM Rocephin [IVPB] IVPB bolus 0, then 2 gm 2 gm/50mL, administered: 09/10/2016 8:56:00 AM Dilaudid [IVP] IVP 0.5 mg, administered: 09/10/2016 10:33:00 AM The following Medications were prescribed to the patient: Zofran (orally disintegrating tablets) 4 mg: take 1 orally every 4 hours as needed for nausea. Dispense fifteen (15). No refill. -- Cory Higgins MD Trimethoprim-Sulfamethoxazole DS: take 1 tablet orally every 12 hours for 7 days. Dispense fourteen (14). No refills. -- Cory Higgins MD Oxycodone/APAP 5 mg/325 mg: take 1-2 tablets orally every 4 hours as needed for pain. Dispense twenty-five (25). No refill. -- Cory Higgins MD Flomax 0.4 mg: take 1 orally every 24 hours. Dispense five (5). No refills. -- Cory Higgins MD
== END 2016-09-10 11:10 | disposition home or self-care (01) ==
LOC: ED SRH 03:23
DX: N20.1 Calculus of ureter (principal); N30.00 Acute cystitis without hematuria
CPT/HCPCS: 90004; 90100; 90469; 95059